=== PATIENT | female | born 1960 | race Asian ===

== ENCOUNTER 2019-02-23 08:41 | Inpatient (IN) | payer MEDICARE ==
[~2019-02-23] VITALS: Ht 160 cm; Wt 65.9 kg
[2019-02-23] MEDS ORDERED: LORazepam 2 MG/ML VIAL IM ONE ×2 (11:30→12:30)
[2019-02-23] MEDS ORDERED: FluPHENAZine HCL 2.5 MG/ML INJ IM ONE ×2 (11:30→12:30)
[2019-02-23] MEDS ORDERED: DiphenhydrAMINE HCL 50 MG/ML VIAL IM ONE (11:30)
[2019-02-23] MEDS ORDERED: ZOLPIDEM TARTRATE 10 MG TABLET PO PRN (12:15)
[2019-02-23] MEDS ORDERED: OLANZapine 5 MG RAPDIS TABLET PO PRN (12:15)
[2019-02-23 13:21] LABS: BASOPHILS % (AUTO) 0.3 % (0.0-2.0); EOSINOPHILS % (AUTO) 3.2 % (1.0-6.0); HEMATOCRIT 41.1 % (36-46); HEMOGLOBIN 13.7 g/dL (12.0-16.0); LYMPHOCYTES # (AUTO) 1.4 K/uL (1.0-4.8); LYMPHOCYTES % (AUTO) 28.7 % (22.0-44.0); MEAN CORPUSCULAR HEMOGLOBIN 30.7 pg (26.0-34.0); MEAN CORPUSCULAR HGB CONC 33.3 G/dL (31.0-37.0); MEAN CORPUSCULAR VOLUME 92 fL (80-100); MONOCYTES # (AUTO) 0.4 K/uL (0.1-1.0); MONOCYTES % (AUTO) 7.2 % (2.0-9.0); NEUTROPHILS % (AUTO) 60.6 % (40.0-70.0); PLATELET COUNT (AUTO) 234 K/uL (150-450); RED BLOOD CELL COUNT(AUTO) 4.47 MIL/uL (4.00-5.20); RED CELL DISTRIBUTION WIDTH 13.8 % (11.5-14.5)
[2019-02-23 13:26] LABS: ANION GAP 9 mmol/L (8-16); CALCIUM, TOTAL 9.4 mg/dL (8.8-10.5); CARBON DIOXIDE 25 mmol/L (22-29); CHLORIDE 106 mmol/L (98-107); CREATININE 0.64 mg/dL (0.60-1.30); GLOMERULAR FILTR. RATE CALC > 60 mL/min (>60); GLUCOSE,RANDOM 94 mg/dL (70-110); SODIUM SERUM 140 mmol/L (136-145); UREA NITROGEN, BLOOD 16 mg/dL (7-18)
[2019-02-23 13:32] LABS: ALANINE AMINOTRANSFERASE 28 U/L (12-78); ALBUMIN 3.6 g/dL (3.4-5.0); ALKALINE PHOSPHATASE 85 U/L (46-116); ASPARTATE AMINOTRANSFERASE 19 U/L (15-37); BILIRUBIN,TOTAL 0.3 mg/dL (0.1-1.0); TOTAL PROTEIN, SERUM 6.9 g/dL (6.4-8.2)
[2019-02-23 16:00] VITALS: BP 137/82
[2019-02-23] MEDS ORDERED: INFLUENZA VIRUS VACCINE QVS 2019-20 (3YR+)/PF 60 MCG/0.5 ML SYRINGE IM ONE (18:00)
[2019-02-23] MEDS ORDERED: LOPERAMIDE HCL 2 MG CAPSULE PO PRN (21:00)
[2019-02-23] MEDS ORDERED: ACETAMINOPHEN 325 MG TABLET PO PRN (21:00)
[2019-02-23] MEDS ORDERED: CloNIDine HCL 0.1 MG TABLET PO PRN (21:00)
[2019-02-23] MEDS ORDERED: PETROLATUM,WHITE 28 GM JELLY TP PRN (21:00)
[2019-02-23] MEDS ORDERED: ONDANSETRON HCL 4 MG TABLET PO PRN (21:00)
[2019-02-23] MEDS ORDERED: ALBUTEROL SULFATE HFA 90 MCG/PUFF 8 GM INHALER IH PRN (21:00)
[2019-02-23] MEDS ORDERED: GuaiFENesin/D-METHORPHAN [SUGAR-FREE] 200-20MG/10 ML SYRUP UDCUP PO PRN (21:00)
[2019-02-23] MEDS ORDERED: MAGNESIUM HYDROXIDE SUSPENSION 30 ML UDCUP PO PRN (21:00)
[2019-02-23] MEDS ORDERED: IBUPROFEN 400 MG TABLET PO PRN (21:00)
[2019-02-23] MEDS ORDERED: NICOTINE 14 MG/24 HOUR PATCH TD PRN (21:00)
[2019-02-24] MEDS: MAG HYDROX/AL HYDROX/SIMETH ES 30 ML SUSPENSION UDCUP PO PRN (09:26)
[2019-02-24] MEDS: LORazepam 2 MG TABLET PO PRN (10:16)
[2019-02-24 10:23] VITALS: BP 139/102
[2019-02-24] MEDS: RisperiDONE 4 MG TABLET PO SCH (20:15)
[2019-02-24] MEDS: LITHIUM CARBONATE 300 MG CAPSULE PO SCH (20:15)
[2019-02-25 05:55] VITALS: BP 105/68
[2019-02-25 08:19] VITALS: BP 100/74
[2019-02-25 08:53] LABS: CHOL/HDL RATIO 2.6 (3.9-5.7)
[2019-02-25] MEDS ORDERED: SERTRALINE HCL 100 MG TABLET PO SCH (09:00)
[2019-02-25] MEDS: LORazepam 2 MG TABLET PO PRN (13:08)
[2019-02-25] MEDS: MAG HYDROX/AL HYDROX/SIMETH ES 30 ML SUSPENSION UDCUP PO PRN (13:52)
[2019-02-25 16:08] VITALS: BP 106/80
[2019-02-25] MEDS: RisperiDONE 4 MG TABLET PO SCH (20:30)
[2019-02-25] MEDS: LITHIUM CARBONATE 300 MG CAPSULE PO SCH (20:30)
[2019-02-25] MEDS: SERTRALINE HCL 100 MG TABLET PO SCH (20:30)
[2019-02-26 00:45] VITALS: BP 109/79
[2019-02-26] MEDS: LORazepam 2 MG TABLET PO PRN (01:41)
[2019-02-26 08:09] VITALS: BP 100/68
[2019-02-26] MEDS: LEVOTHYROXINE SODIUM 50 MCG TABLET PO SCH (10:34)
[2019-02-26 16:29] VITALS: BP 133/90
[2019-02-26] MEDS: SERTRALINE HCL 100 MG TABLET PO SCH (20:05)
[2019-02-26] MEDS: LITHIUM CARBONATE 300 MG CAPSULE PO SCH (20:05)
[2019-02-26] MEDS: RisperiDONE 4 MG TABLET PO SCH (20:05)
[2019-02-26] MEDS ORDERED: RISP4 PO (21:02)
[2019-02-26] MEDS ORDERED: LEVO50 PO (21:02)
[2019-02-26] MEDS ORDERED: SERT100T12 PO (21:02)
[2019-02-26] MEDS ORDERED: LITH300C3 PO (21:02)
[2019-02-27] MEDS: LORazepam 2 MG TABLET PO PRN (01:09)
[2019-02-27 06:17] VITALS: BP 109/72
[2019-02-27] MEDS: LEVOTHYROXINE SODIUM 50 MCG TABLET PO SCH (07:12)
[2019-02-27] MEDS: MAG HYDROX/AL HYDROX/SIMETH ES 30 ML SUSPENSION UDCUP PO PRN (08:08)
[2019-02-27 08:17] VITALS: BP 108/71
[2019-02-27 16:51] VITALS: BP 100/62
[2019-02-27] MEDS: DiphenhydrAMINE HCL 25 MG CAPSULE PO PRN (20:16)
[2019-02-27] MEDS: RisperiDONE 4 MG TABLET PO SCH (20:17)
[2019-02-27] MEDS: LITHIUM CARBONATE 300 MG CAPSULE PO SCH (20:17)
[2019-02-27] MEDS: SERTRALINE HCL 100 MG TABLET PO SCH (20:30)
[2019-02-28 04:32] VITALS: BP 106/66
[2019-02-28] MEDS: LEVOTHYROXINE SODIUM 50 MCG TABLET PO SCH (06:20)
[2019-02-28 08:08] VITALS: BP 125/77
[2019-02-28 15:54] VITALS: BP 121/64
[2019-02-28] MEDS: SERTRALINE HCL 100 MG TABLET PO SCH (20:29)
[2019-02-28] MEDS: LITHIUM CARBONATE 300 MG CAPSULE PO SCH (20:29)
[2019-02-28] MEDS: RisperiDONE 4 MG TABLET PO SCH (20:29)
[2019-02-28] MEDS: DiphenhydrAMINE HCL 25 MG CAPSULE PO PRN (20:32)
[2019-03-01 05:38] VITALS: BP 117/78
[2019-03-01] MEDS: LEVOTHYROXINE SODIUM 50 MCG TABLET PO SCH (06:12)
[2019-03-01 08:27] VITALS: BP 116/78
[2019-03-01 16:04] VITALS: BP 115/74
[2019-03-01] MEDS: DiphenhydrAMINE HCL 25 MG CAPSULE PO PRN (20:48)
[2019-03-01] MEDS: RisperiDONE 4 MG TABLET PO SCH (20:49)
[2019-03-01] MEDS: SERTRALINE HCL 100 MG TABLET PO SCH (20:49)
[2019-03-01] MEDS: LITHIUM CARBONATE 300 MG CAPSULE PO SCH (20:49)
[2019-03-02 05:41] VITALS: BP 113/73
[2019-03-02] MEDS: LEVOTHYROXINE SODIUM 50 MCG TABLET PO SCH (06:27)
[2019-03-02 08:40] VITALS: BP 124/77
[2019-03-02] MEDS: DOCUSATE SODIUM 100 MG CAPSULE PO PRN ×2 (10:21→16:15)
[2019-03-02 16:05] VITALS: BP 108/77
[2019-03-02] MEDS: DiphenhydrAMINE HCL 25 MG CAPSULE PO PRN (21:26)
[2019-03-02] MEDS: SERTRALINE HCL 100 MG TABLET PO SCH (21:26)
[2019-03-02] MEDS: LITHIUM CARBONATE 300 MG CAPSULE PO SCH (21:26)
[2019-03-02] MEDS: RisperiDONE 4 MG TABLET PO SCH (21:26)
[2019-03-03] VITALS: BP 119/69
[2019-03-03] MEDS: LEVOTHYROXINE SODIUM 50 MCG TABLET PO SCH (06:30)
[2019-03-03 08:50] VITALS: BP 111/70
[2019-03-03] MEDS: DOCUSATE SODIUM 100 MG CAPSULE PO PRN ×2 (10:44→20:47)
[2019-03-03 16:15] VITALS: BP 134/87
[2019-03-03] MEDS: RisperiDONE 4 MG TABLET PO SCH (20:11)
[2019-03-03] MEDS: SERTRALINE HCL 100 MG TABLET PO SCH (20:11)
[2019-03-03] MEDS: LITHIUM CARBONATE 300 MG CAPSULE PO SCH (20:12)
[2019-03-03] MEDS: DiphenhydrAMINE HCL 25 MG CAPSULE PO PRN (20:47)
[2019-03-04 06:06] VITALS: BP 115/72
[2019-03-04] MEDS: LEVOTHYROXINE SODIUM 50 MCG TABLET PO SCH (06:21)
[2019-03-04 08:08] VITALS: BP 116/70
[2019-03-04] MEDS ORDERED: SERT100T12 PO ×2 (09:30→10:12)
[2019-03-04] MEDS ORDERED: RISP4 PO (09:30)
[2019-03-04] MEDS ORDERED: LITH300C3 PO (09:30)
[2019-03-04] MEDS: DOCUSATE SODIUM 100 MG CAPSULE PO PRN (10:30)
== END 2019-03-04 17:54 | disposition home or self-care (01) | DRG 885 ==
LOC: EMS 08:44 → B3A 13:26
DX: F31.2 Bipolar disorder, current episode manic severe with psychotic features (principal); E03.9 Hypothyroidism, unspecified; F41.9 Anxiety disorder, unspecified; F10.10 Alcohol abuse, uncomplicated; E78.5 Hyperlipidemia, unspecified; Z79.899 Other long term (current) drug therapy; Z88.5 Allergy status to narcotic agent; Z88.8 Allergy status to other drugs, medicaments and biological substances; Z59.0 Homelessness
CPT/HCPCS: 84443; G0480; J1200; J2060; J3490